=== PATIENT | male | born 1985 | race Caucasian/White ===

== ENCOUNTER 2022-12-13 09:00 | Emergency (ER) | payer OTHER, SELFPAY ==
--- NOTE | ~2022-12-13 | XR_ITS ---
EXAMINATION: XR knee RT min 4V DATE: 12/13/2022 09:29 INDICATION: Right knee pain TECHNIQUE: Four views of the right knee were obtained. COMPARISON: None. FINDINGS: Alignment is normal. No fracture or osteochondral lesion. Joint spaces are normal with no e rosions. No joint effusion/synovitis. Soft tissues are unremarkable. IMPRESSION: 1. No acute osseous abnormality. Reviewed, dictated and finalized at location [facility]. [facility]
[2022-12-13 09:06] VITALS: BP 109/69; PULSE 86; RESP 18; TEMP 36.7; O2SAT 98
--- NOTE | 2022-12-13 09:06 | ED.LOWEXIN ---
HPI - Extremity Injury (Lower) General Chief Complaint: Extremity Injury, Lower Stated Complaint: right leg-fell off ladder Time Seen by Provider: 12/13/22 09:06 Source: patient Mode of arrival: ambulatory Limitations: no limitations History of Present Illness HPI Narrative: Patient is a 36-year-old male who presents the ED with report of a fall off a ladder. Patient reports he was up on a ladder today putting up [place] lights when the ladder fell out sideways from underneath him. He fell approximately 4 to 6 feet from the ground. He states he fell with his right leg and knee bent underneath of him. He complains of significant pain to his right knee. Unable to bear weight. He did not hit his head or lose consciousness. He sustained a small abrasion to his right first toe, no other injuries. He has not taken anything for pain prior to arrival. Denies numbness or tingling. Denies neck or back pain. Related Data Allergies Allergy/AdvReac Type Severity Reaction Status Date / Time No Known Allergies Allergy Mild Verified 01/20/19 15:45 Review of Systems Review of Systems: CONSTITUTIONAL: Denies fever, chills, or sweats. SKIN: See HPI. MUSCULOSKELETAL: See HPI. NEUROLOGIC: Denies HI, LOC, tingling, numbness, or weakness. All systems reviewed & are unremarkable except as noted in HPI and below Exam Narrative: GENERAL: Well appearing, well-nourished, non-toxic, in no acute distress. HEAD: Normocephalic, atraumatic. NECK: Supple. No adenopathy, no masses. RESPIRATORY: Airway patent, respirations nonlabored. Clear to auscultation bilaterally, no rales, rhonchi, wheezing. CARDIOVASCULAR: Regular rate and rhythm without murmurs, rubs, or gallops. Pedal pulses 2+ and equal bilaterally. MUSCULOSKELETAL: Limited range of motion of right knee due to pain. Tenderness to palpation throughout medial anterior knee. No lower extremity swelling. Sensation intact throughout RLE. Able to wiggle toes. No tenderness over right hip, right ankle. SKIN: Warm, dry, normal color. No rashes. Small abrasion to distal tip of right first toe, no active bleeding, no deeper wounds or lacerations. NEURO: A&O X3. Speech clear. Cranial nerves II-XII grossly intact. No ataxic movements. PSYCHIATRIC: Appropriate mood and affect. Normal interaction. Course Vital Signs Vital signs: Vital Signs Temperature 98.1 F 12/13/22 09:06 Pulse Rate 86 12/13/22 09:06 Respiratory Rate 18 12/13/22 09:06 Blood Pressure 109/69 12/13/22 09:06 Pulse Oximetry 98 12/13/22 09:06 Oxygen Delivery Room Air 12/13/22 09:06 Temperature 96.1 F L 12/13/22 09:11 Pulse Rate 65 12/13/22 10:10 Respiratory Rate 16 12/13/22 10:10 Blood Pressure 108/76 12/13/22 10:10 Pulse Oximetry 99 12/13/22 10:10 Oxygen Delivery Room Air 12/13/22 09:11 MDM - Extremity Injury (Lower) MDM Narrative Medical decision making narrative: Patient presented to ED with fall off ladder, approximately 4 to 6 feet up, pain to right knee. Neurovascularly intact. No evidence of compartment syndrome. Patient did not sustain any other injuries. No hip/ankle/back pain. No head injury or LOC. X-ray R knee without acute osseous abnormalities. No joint effusion. Patient updated on imaging results, possibility of internal derangement/ligament/meniscus injury. Will place patient in knee immobilizer for support, crutches for assistance with ambulation. Will provide patient with orthopedic information for follow-up. Pain medication to pharmacy. Given return precautions. D/C in stable condition. Medical Records Attestation: I reviewed the patient's medical records. Imaging Data Attestation: I personally reviewed and interpreted this imaging study as follows: Radiologist's impression: ITS Impressions Knee X-Ray 12/13/22 10:16 IMPRESSION: 1. No acute osseous abnormality. Discharge Plan Discharge Clinical Impression: Acute internal d
[2022-12-13 09:11] VITALS: TEMP 35.6
[2022-12-13] MEDS: ONDANSETRON INJ 4 MG/2 ML VIAL IV PUSH (09:17)
[2022-12-13] MEDS: HYDROmorphone HCL INJ (*CRX) 1 MG/ML SYR IV PUSH (09:17)
[2022-12-13 09:36] VITALS: BP 121/76; PULSE 72; RESP 12; O2SAT 98
[2022-12-13 10:10] VITALS: BP 108/76; PULSE 65; RESP 16; O2SAT 99
[2022-12-13] MEDS: KETOROLAC 30 MG/ML VIAL (*BKC) IV PUSH (10:38)
[2022-12-13] MEDS: HYDROcodone/acetaminophen (*CRX) 5-325 MG TABLET 1 TAB PO (10:39)
== END 2022-12-13 10:43 | disposition home or self-care (01) ==
PROVIDERS: Emergency Provider Physician Assistant
DX: M23.91 Unspecified internal derangement of right knee (principal); W11.XXXA Fall on and from ladder, initial encounter
CPT/HCPCS: 73564; 96374; 96375; 99284; A9270; J1170; J1885; J2405

== ENCOUNTER → 2022-12-21 13:34 | Outpatient (CLI) | payer OTHER, SELFPAY ==
--- NOTE | ~2022-12-21 | MR_ITS ---
EXAMINATION: MR knee RT wo con DATE: 12/21/2022 14:23 INDICATION: Unspecified internal derangement of the right knee TECHNIQUE: Magnetic resonance imaging (MRI) of the right knee was performed without intravenous contr ast. Sequences included coronal PD-weighted FSE, coronal PD-weighted FS FSE, sagittal T2-weighted FS E, sagittal PD-weighted FS FSE and axial PD weighted fat saturated FSE. COMPARISON: None. FINDINGS: Medial compartment: Medial meniscus is normal. Articular cartilage is normal. Lateral compartment: Complex tear extending from the inner free edge at the radial side of the posterior horn of the later al meniscus and extending to the periphery of the more lateral posterior horn. There is an irregular shallow depression of the articular cortex at the central weightbearing lateral femoral condyle witho ut associated marrow signal abnormality and with thickening and heterogeneous signal of the overlying cartilage with smooth appearing articular surface. This be consistent with a chronically collapsed o steochondral lesion. There is a nondisplaced impaction fracture along the posterior rim of the latera l tibial plateau with some associated deep likely posttraumatic chondral fissuring consistent with an anterior tibial subluxation injury. Patellofemoral compartment: Articular cartilage is normal. Ligaments and tendons: Complete tear of the anterior cruciate ligament. There is prominent increased intrasubstance signal e xtending cephalad along the posterior cruciate ligament consistent with at least partial tear. Promin ent thickening and increased signal of the proximal medial collateral ligament consistent with modera te grade sprain/partial tear. The fibular collateral ligament complex is normal. Mild tendinopathy an d likely low-grade strain of the popliteus tendon. Mild distal quadriceps tendinopathy without tear. Tendons of magic angle artifact extending across undulations in the otherwise normal patellar tendon. The visualized medial and lateral hamstring tendons as well as the iliotibial band are normal. Fluid: Large right knee joint effusion with several bubbles of fat within the nondependent suprapatellar kena ch likely originating at the intra-articular fracture along the posterior rim of the lateral tibial p lateau. No loose osteochondral bodies identified. Prominent soft tissue edema in the subcutaneous fat along the medial, lateral and posterior aspect of the knee as well as in the deeper popliteal fossa. Osseous/other: Bone alignment is normal. No other fractures likely positional related fracture along the posterior r im of the lateral tibial plateau. Prominent low signal intensity bone island at the lateral metaphyse al region of the proximal tibia. IMPRESSION: 1. Conscious sedation findings consistent with an anterior tibial subluxation injury including comple te tear of the anterior cruciate ligament, moderate grade/partial tear of the proximal medial collate ral ligament, complex tear at the posterior horn of the lateral tibial plateau and adjacent nondispla lula intra-articular impaction fracture along the posterior rim of the lateral tibial plateau. 2. Chronic collapsed osteochondral lesion at the central weightbearing lateral femoral condyle with i ntact smooth appearing surface to the overlying articular cartilage. 3. Large right knee joint effusion containing a few bubbles of fat likely originating from the latera l tibial plateau posterior impaction fracture. Reviewed, dictated and finalized at location [facility]. E DRIVER IMPRESSION: 1. Conscious sedation findings consistent with an anterior tibial subluxation i njury including complete tear of the anterior cruciate ligament, moderate grade /partial tear of the proximal medial collateral ligament, complex tear at the
== END ==
PROVIDERS: PCP Orthopaedic Surgery; Visit Provider Orthopaedic Surgery
DX: M23.91 Unspecified internal derangement of right knee (principal); M25.461 Effusion, right knee
CPT/HCPCS: 73721